=== PATIENT | female | born 1995 | race Caucasian/White ===

== ENCOUNTER 2017-01-21 11:43 | Emergency (ER) | payer BC ==
[2017-01-21 12:20] VITALS: BP 119/71
--- NOTE | 2017-01-21 13:35 | UC ---
Throat Pain/Nasal Garret HPI - HPI Summary HPI Summary: Sore throat, h/a, body aches x2 days. Starting Sunday had ST that was scratchy. Now with headache . No ear pain, sinus pressure, (+) phlegm in the chest. denies shortness of breath or wheezing . denies asthma but does smoke and advised to stop . denies recent travel or tick bites or insect bites. [ End ] - History of Current Complaint Chief Complaint: UCGeneralIllness Stated Complaint: THROAT Time Seen by Provider: 01/21/17 13:33 Hx Obtained From: Patient Hx Last Menstrual Period: has mirena IUD ?: No Onset/Duration: Sudden Onset Severity: Mild Cough: Nonproductive Associated Signs & Symptoms: Positive: Hoarseness. Negative: Wheezing, Sinus Discomfort, Nasal Discharge, Fever, Vomiting - Epiglottits Risk Factors Epiglottis Risk Factors: Negative - Allergies/Home Medications Allergies/Adverse Reactions: Allergies Allergy/AdvReac Type Severity Reaction Status Date / Time Amoxicillin Allergy Rash Verified 01/21/17 12:15 Home Medications: Home Medications Levonorgestrel (Iud) [Mirena IUD] 20 mcg IU SEE INSTRUCTIONS 01/21/17 [History Confirmed 01/21/17] PMH/Surg Hx/FS Hx/Imm Hx Previously Healthy: Yes - Surgical History Surgical History: None - Family History Known Family History: Positive: None - Social History Occupation: Employed Full-time - electronics Lives: With Family Alcohol Use: None Substance Use Type: None Smoking Status (MU): Heavy Every Day Tobacco Smoker Type: Cigarettes Amount Used/How Often: 1 PPD Cessation Counseling: Patient Advised to Stop Review of Systems ENT: Sore Throat All Other Systems Reviewed And Are Negative: Yes Physical Exam Triage Information Reviewed: Yes Appearance: Well-Appearing, No Pain Distress, Well-Nourished Vital Signs: Initial Vital Signs Temp 99.2 F 01/21/17 12:16 Pulse 75 01/21/17 12:16 Resp 16 01/21/17 12:16 BP 119/71 01/21/17 12:16 Pulse Ox 100 01/21/17 12:16 Vital Signs Reviewed: Yes Eye Exam: Normal ENT Exam: Normal ENT: Positive: Pharyngeal erythema, Nasal congestion, TMs normal, Other: - neg kernig. Negative: Tonsillar swelling, Tonsillar exudate Dental Exam: Normal Neck exam: Normal Neck: Positive: 1 Respiratory Exam: Normal Cardiovascular Exam: Normal Musculoskeletal Exam: Normal Neurological Exam: Normal Psychological Exam: Normal Skin Exam: Normal Throat Pain/Nasal Course/Dx - Course Course Of Treatment: discussed s/s of strep / meningitis and if any concerns go to ed but no acute concerns at this time and has viral infection - Differential Dx/Diagnosis Differential Diagnosis/HQI/PQRI: Pharyngitis, Tonsillitis, Other Provider Diagnoses: viral pharyngitis Discharge - Discharge Plan Condition: Good Disposition: HOME Patient Education Materials: Pharyngitis (ED) Referrals: Nathen Park MD [Primary Care Provider] - 3 Days
== END 2017-01-21 14:00 | disposition home or self-care (01) ==
LOC: UCCORT 11:43
DX: J02.8 Acute pharyngitis due to other specified organisms (principal); B97.89 Other viral agents as the cause of diseases classified elsewhere; Z72.0 Tobacco use
CPT/HCPCS: 87651; 99211; G0463

== ENCOUNTER 2018-10-31 14:25 | Emergency (ER) | payer BC ==
[2018-10-31 14:50] VITALS: BP 126/80
--- NOTE | 2018-10-31 15:06 | UC ---
Throat Pain/Nasal Ronaldo HPI - HPI Summary HPI Summary: 3 days of sore throat, pain w/ swallowing, nasal ronaldo., neck aching, and occasional cough. - History of Current Complaint Chief Complaint: UCGeneralIllness Stated Complaint: SORE THROAT, RUNNY NOSE Time Seen by Provider: 10/31/18 14:52 Hx Obtained From: Patient Hx Last Menstrual Period: has mirena IUD Pain Intensity: 5 Pain Scale Used: 0-10 Numeric Associated Signs & Symptoms: Positive: Dysphagia, Sinus Discomfort, Nasal Discharge. Negative: FB Sensation, Drooling, Wheezing, Hoarseness, Fever, Vomiting, Rash - Epiglottits Risk Factors Epiglottis Risk Factors: Muffled Voice - neg. for all other risk factors. - Allergies/Home Medications Allergies/Adverse Reactions: Allergies Allergy/AdvReac Type Severity Reaction Status Date / Time MS Amoxicillin [Amoxicillin] Allergy Rash Verified 10/31/18 14:50 PMH/Surg Hx/FS Hx/Imm Hx Previously Healthy: Yes - Surgical History Surgical History: None - Family History Known Family History: Positive: None - Social History Alcohol Use: None Substance Use Type: None Smoking Status (MU): Heavy Every Day Tobacco Smoker Type: Cigarettes Amount Used/How Often: 1 PPD Review of Systems All Other Systems Reviewed And Are Negative: Yes Constitutional: Positive: Negative Skin: Negative: Rash ENT: Positive: Sore Throat, Nasal Discharge, Sinus Congestion. Negative: Dental Pain, Ear Ache Respiratory: Positive: Cough - occasional. Negative: Shortness Of Breath Cardiovascular: Positive: Negative Gastrointestinal: Negative: Abdominal Pain Neurological: Negative: Headache Physical Exam Triage Information Reviewed: Yes Appearance: Well-Appearing Vital Signs: Initial Vital Signs Temp 98.6 F 10/31/18 14:47 Pulse 67 10/31/18 14:47 Resp 16 10/31/18 14:47 BP 126/80 10/31/18 14:47 Pulse Ox 100 10/31/18 14:47 Vital Signs Reviewed: Yes ENT: Positive: Pharyngeal erythema, TMs normal, Muffled voice, Uvula midline. Negative: Tonsillar swelling, Tonsillar exudate Neck: Positive: Supple, Nontender, No Lymphadenopathy. Negative: Nuchal Rigidity Respiratory Exam: Normal Cardiovascular Exam: Normal Skin: Positive: Rashes - tinea versicolor noted; chronic Throat Pain/Nasal Course/Dx - Course Course Of Treatment: Vitals are good and exam significant for erythematous orpharynx. Although she complained of post. neck pain, she had FROM and was afebrile. rapid strep neg, sending for cx. - Differential Dx/Diagnosis Differential Diagnosis/HQI/PQRI: Pharyngitis, Sinusitis, URI Provider Diagnosis: Pharyngitis Discharge - Sign-Out/Discharge Documenting (check all that apply): Patient Departure All imaging exams completed and their final reports reviewed: No Studies - Discharge Plan Condition: Good Disposition: HOME Patient Education Materials: Pharyngitis (ED) Forms: *Work Release Referrals: Nathen Park MD [Primary Care Provider] - Additional Instructions: IF you develop any shortness of breath or difficulty of breathing please go to the emergency room. - Billing Disposition and Condition Condition: GOOD Disposition: Home
== END 2018-10-31 15:25 | disposition home or self-care (01) ==
LOC: UCCORT 14:25
DX: J02.9 Acute pharyngitis, unspecified (principal); F17.210 Nicotine dependence, cigarettes, uncomplicated; Z88.0 Allergy status to penicillin
CPT/HCPCS: 87070; 87651; 99211; G0463

== ENCOUNTER 2019-10-30 16:37 | Emergency (ER) | payer BC, OTHER ==
--- NOTE | 2019-10-30 17:48 | UC ---
FLU HPI - HPI Summary HPI Summary: Patient is a 23yo female presenting with c/o intermittent productive cough, chest tightness, and sore throat x2-3 days. Patient states that she is sob with coughing fits. Denies sob at rest. Denies chest pain. Cough productive of clear sputum at times. Denies known fever and chills. Notes possible body aches at symptom onset. Also notes VILLATORO and "feeling really tired." Denies appetite changes. Denies taking anything for symptoms. 1/2ppd smoker "for years." - History of Current Complaint Chief Complaint: UCRespiratory Stated Complaint: SORE THROAT, COUGH, SOB Hx Obtained From: Patient Hx Last Menstrual Period: has mirena IUD Pain Intensity: 4 Pain Scale Used: 0-10 Numeric - Allergy/Home Medications Allergies/Adverse Reactions: Allergies Allergy/AdvReac Type Severity Reaction Status Date / Time amoxicillin Allergy Rash Verified 10/30/19 16:44 Home Medications: Home Medications Levonorgestrel (Iud) [Mirena IUD] 20 mcg IU SEE INSTRUCTIONS 01/21/17 [History Confirmed 10/30/19] Albuterol HFA INHALER* [Ventolin HFA Inhaler*] 1 - 2 puff INH Q6H PRN #1 mdi [Rx] [id number] ER TAB [Mucinex*] 600 mg PO BID 10/30/19 [History Confirmed 10/30/19 ] PMH/Surg Hx/FS Hx/Imm Hx - Surgical History Surgical History: None - Family History Known Family History: Positive: None - Social History Alcohol Use: None Substance Use Type: None Smoking Status (MU): Heavy Every Day Tobacco Smoker Type: Cigarettes Amount Used/How Often: 1 PPD Review of Systems All Other Systems Reviewed And Are Negative: Yes Constitutional: Positive: Fatigue ENT: Positive: Sinus Congestion Respiratory: Positive: Shortness Of Breath - with coughing, Cough, Other - "chest tightness" Cardiovascular: Positive: Negative Gastrointestinal: Positive: Negative Musculoskeletal: Positive: Myalgia - 2 days ago Neurological/Mental Status: Positive: Headache Physical Exam - Summary Physical Exam Summary: Vital Signs Reviewed: Yes A+Ox3, no distress, well-appearing Eyes: Conjunctiva Clear ENT: Hearing grossly normal, TM x 2 clear, moist, uvula midline, no exudate, + mild pharyngeal erythema Neck: Positive: Supple Respiratory: Positive: No respiratory distress, No accessory muscle use + CTA throughout no w/r Cardiovascular: RRR nl s1, s2 no m/r Musculoskeletal Exam: MIRAMONTES x 4 without difficulty Neurological: Positive: Alert Psychological: Positive: age appropriate behavior Skin: Positive: no rash, no ecchymosis Vital Signs: Vital Signs (72 hours) 10/30/19 16:39 Temperature 98.1 F Pulse Rate 75 Respiratory 16 Rate Blood Pressure 129/88 (mmHg) O2 Sat by Pulse 96 Oximetry Lab Results 10/30/19 10/30/19 Range/Units 18:33 18:35 Influenza A (Rapid) Negative (Negative) Influenza B (Rapid) Negative (Negative) Group A Strep Rapid Negative (Negative) Flu Course/Dx - Course Course Of Treatment: Flu and strep tests were negative. I discussed results with the patient and informed her that she would receive the covid19 results within the next 3-5 days. I discussed self quarantining until results had been received and advised otherwise by healthcare provider. I provided the patient with an inhaler for sob. Instructed to go to the ED if she experiences worsening shortness of breath/difficulty breathing. Patient voiced understanding and agreed with treatment plan. All questions answered to the best of my abilities. - Differential Dx/Diagnosis Differential Diagnosis/HQI/PQRI: Bronchitis, Influenza, Upper Respiratory Infection Provider Diagnosis: Acute bronchitis, URI, acute Discharge ED - Sign-Out/Discharge Documenting (check all that apply): Patient Departure All imaging exams completed and their final reports reviewed: No Studies - Discharge Plan Condition: Stable Disposition: HOME Prescriptions: Albuterol HFA INHALER* [Ventolin HFA Inhaler*] 1 - 2 puff INH Q6H PRN #1 mdi PRN Reason: Shortness Of Breath Patient Education Materials: Upper Respiratory Infection (ED), Acute Bronchitis (ED) Forms: COVID-19 Tested & Isolation Referrals: Nathen Park MD [Primary Care Provider] - Additional Instructions: As discussed, you tested negative for strep and flu today. Use the inhaler as needed for shortness of breath/chest tightness. This is to be picked up by someone else in your household for you. You have also received testing for covid-19 today. You will be notified of these results within the next 3-5 days. You need to self-quarantine for the next 14 days unless otherwise advised by a healthcare provider. This means staying home and no contact with anyone who lives with you. You should not share your bedroom or bathroom. Food should be left outside your door for you to take once the other person has walked away. You may continue with tylenol. Avoid ibuprofen (motrin) as this has been shown to possibly exacerbate covid19 symptoms. Increase your fluid intake. You also need to stop smoking. Go to the nearest emergency room or call 911 if you experience new or worsening symptoms. - Billing Disposition and Condition Condition: STABLE Disposition: Home - Attestation Statements Provider Attestation: Chart has been reviewed. I did not see the patient but was available for consult. EK. Addendum entered and electronically signed by Mindi Buckley PA 10/30/19 19:46: UC Addendum Addendum: Full PPE was used while examining this patient.
[2019-10-30 18:26] VITALS: BP 129/88
[2019-10-30 18:47] LABS: Influenza A Molecular Negative (Negative); Influenza B Molecular Negative (Negative)
== END 2019-10-30 19:05 | disposition home or self-care (01) ==
LOC: UCCORT 16:37
DX: J20.9 Acute bronchitis, unspecified (principal); J06.9 Acute upper respiratory infection, unspecified; Z20.828 Contact with and (suspected) exposure to other viral communicable diseases; Z88.0 Allergy status to penicillin; F17.210 Nicotine dependence, cigarettes, uncomplicated
CPT/HCPCS: 87635; 87651; 99212; G0463